=== PATIENT | male | born 1985 | race Caucasian/White ===

== ENCOUNTER 2017-12-23 22:56 | Inpatient (IN) | payer BC, OTHER ==
--- NOTE | 2017-12-24 00:07 | ED ---
General Adult HPI - General Chief complaint: Fever Stated complaint: Fever-cat bite Time Seen by Provider: 12/23/17 23:52 Source: patient, RN notes reviewed, old records reviewed Mode of arrival: wheelchair Limitations: physical limitation - History of Present Illness Initial comments: This is a 32-year-old male the ER for evaluation. They presents for evaluation regards to left leg swelling and pain. Patient was bitten by CAT 6 days ago, was given antibiotics has been taking antibiotics for the pain swelling and erythema continue to spread. Patient denies any other injury - Related Data Home Medications Medication Instructions Recorded Confirmed Ibuprofen [Motrin] 600 mg PO Q8HR PRN 12/31/15 12/31/15 Miconazole 2% Cream [Monistat-Derm] 1 applic TOPICAL BID 12/31/15 12/31/15 Povidone-Iodine [Betadine] 1 applic TOPICAL BID 12/31/15 12/31/15 Previous Rx's Medication Instructions Recorded Ciprofloxacin HCl [Cipro] 500 mg PO Q12HR #20 tablet 12/31/15 Allergies Allergy/AdvReac Type Severity Reaction Status Date / Time No Known Allergies Allergy Verified 12/23/17 23:13 Review of Systems ROS Statement: Those systems with pertinent positive or pertinent negative responses have been documented in the HPI. ROS Other: All systems not noted in ROS Statement are negative. Past Medical History Past Medical History: No Reported History Additional Past Medical History / Comment(s): varcose veins History of Any Multi-Drug Resistant Organisms: None Reported Past Surgical History: No Surgical Hx Reported Past Psychological History: No Psychological Hx Reported Smoking Status: Never smoker Past Alcohol Use History: None Reported Past Drug Use History: Marijuana General Exam Limitations: physical limitation General appearance: alert, in no apparent distress Head exam: Present: atraumatic, normocephalic, normal inspection Eye exam: Present: normal appearance, PERRL, EOMI. Absent: scleral icterus, conjunctival injection, periorbital swelling ENT exam: Present: normal exam, mucous membranes moist Neck exam: Present: normal inspection. Absent: tenderness, meningismus, lymphadenopathy Respiratory exam: Present: normal lung sounds bilaterally. Absent: respiratory distress, wheezes, rales, rhonchi, stridor Cardiovascular Exam: Present: regular rate, normal rhythm, normal heart sounds. Absent: systolic murmur, diastolic murmur, rubs, gallop, clicks GI/Abdominal exam: Present: soft, normal bowel sounds. Absent: distended, tenderness, guarding, rebound, rigid Extremities exam: Present: normal inspection, full ROM, normal capillary refill. Absent: tenderness, pedal edema, joint swelling, calf tenderness, other (Left lower extremity swelling and edema and biting) Back exam: Present: normal inspection Neurological exam: Present: alert, oriented X3, CN II-XII intact Psychiatric exam: Present: normal affect, normal mood Skin exam: Present: warm, dry, intact, normal color. Absent: rash Course Vital Signs 12/23/17 23:09 Temperature 98.3 F Pulse Rate 110 H Respiratory 18 Rate Blood Pressure 148/88 O2 Sat by Pulse 97 Oximetry Medical Decision Making - Medical Decision Making 32 male positive fever positive. Patient be admitted for IV antibiotics secondary to being on Augmentin for 2 days with failure of outpatient treatment. Increasing numbness increasing edema - Radiology Data Radiology results: report reviewed (X-ray tib-fib left leg negative), image reviewed Disposition Clinical Impression: Cat scratch, Fever, Failure of outpatient treatment, Cat bite of left lower leg Disposition: ADMITTED IP TO THIS HOSP Condition: Fair Is patient prescribed a controlled substance at d/c from ED?: No Referrals: Fredy Saldana MD [Primary Care Provider] - 1-2 days
[2017-12-24] MEDS ORDERED: PIPERACILLIN-TAZOBACTAM 3.375 GM in DEXTROSE/WATER 1 50ML.BAG IVPB STA (00:14)
[2017-12-24] MEDS ORDERED: SODIUM CHLORIDE 0.9% 1,000 ML IV STA (00:14)
[2017-12-24] MEDS ORDERED: SODIUM CHLORIDE 0.9% 1,000 ML IV ONE (00:14)
[2017-12-24] MEDS ORDERED: SODIUM CHLORIDE 0.9% 500 ML IV STA (00:14)
[2017-12-24] MEDS ORDERED: ACETAMINOPHEN IV (For NPO) 1,000 MG in EMPTY BAG 1 BAG IVPB STA (00:16)
[2017-12-24 01:15] LABS: Basophils # (A) 0.1 k/uL (0-0.2); Basophils % (A) 0 %; Eosinophils # (A) 0.3 k/uL (0-0.7); Eosinophils % (A) 2 %; HCT 42.5 % (39.0-53.0); HGB 14.7 gm/dL (13.0-17.5); Lymphocytes % (A) 17 %; MCH 30.6 pg (25.0-35.0); MCHC 34.6 g/dL (31.0-37.0); MCV 88.4 fL (80.0-100.0); Mean Platelet Volume 7.4; Monocytes % (A) 5 %; Neutrophils # (A) 13.4 k/uL (1.3-7.7); Neutrophils % (A) 74 %; Platelet Count 214 k/uL (150-450); RBC 4.81 m/uL (4.30-5.90); RDW 12.7 % (11.5-15.5); WBC 18.1 k/uL (3.8-10.6)
[2017-12-24 01:25] LABS: ALT 38 U/L (21-72); AST 26 U/L (17-59); Albumin 4.6 g/dL (3.5-5.0); Alkaline Phosphatase 100 U/L (38-126); Anion Gap 13 mmol/L; Blood Urea Nitrogen 17 mg/dL (9-20); Calcium 9.7 mg/dL (8.4-10.2); Carbon Dioxide 24 mmol/L (22-30); Chloride 101 mmol/L (98-107); Glucose 90 mg/dL (74-99); Sodium 138 mmol/L (137-145); Total Bilirubin 0.9 mg/dL (0.2-1.3); Total Protein 7.4 g/dL (6.3-8.2)
--- NOTE | 2017-12-24 01:28 | XR ---
EXAMINATION TYPE: XR tibia fibula LT DATE OF EXAM: 12/24/2017 COMPARISON: NONE HISTORY: Pain and swelling TECHNIQUE: 4 views FINDINGS: I see no fracture nor dislocation. Ankle joint and knee joint appear intact. There is no si gn of knee joint effusion. IMPRESSION: Soft tissue swelling over the lateral malleolus and also the lateral aspect of the lower leg. No fracture seen.
[2017-12-24] MEDS: ACETAMINOPHEN TAB 325 MG TAB PO PRN ×2 (11:39→18:16)
--- NOTE | 2017-12-24 14:09 | HP ---
HISTORY AND PHYSICAL CHIEF COMPLAINT: Cat bite of the left lower leg. HISTORY OF PRESENT ILLNESS: This gentleman was bitten Thursday by his cat in the left lower leg. Next day, it was more red and swollen. He went to the emergency room where he was started on Augmentin 875 b.i.d. and steadily grew worse. He came back to the emergency room. He has had chills and he had a temperature of a 100. The lower leg and ankle and foot were cellulitic. He is healthy otherwise. REVIEW OF SYSTEMS: He has no other complaints or problems. Past medical history, family history personal and social histories are unremarkable. He has had no surgery or allergies. He takes no medications. He does not smoke or drink. He is employed. PHYSICAL EXAM: Blood pressure is 118/83 with a pulse of 84, respirations of 16 and temperature of a 100. In general, he appeared to be well developed, well nourished, in no acute distress. Skin color is normal skin is warm, dry. Lymph nodes are not enlarged. Head, ears, eyes, nose, mouth, and throat were normal and neck veins are not distended. Thyroid is not enlarged. Chest is clear. Cardiac exam is normal. Abdomen is soft, nontender. Extremities are normal except for the left lateral lower leg where there are bite isabel about the ankle. There is cellulitis in the area of the distal left lower leg, ankle and down into the foot. He has good range of motion in the ankle and foot. Neurologically he is intact. IMPRESSION: CAT bite and cellulitis of the left lower leg and foot. PLAN: 1. Bed rest. 2. IV fluids. 3. IV antibiotics. 4. Elevation. MMODL / IJN: [id number] /
[2017-12-24] MEDS: PIPERACILLIN-TAZOBACTAM 3.375 GM in DEXTROSE/WATER 1 50ML.BAG IVPB SCH ×2 (14:45→21:38)
[2017-12-24] MEDS ORDERED: ACETAMINOPHEN TAB 500 MG TAB PO PRN (15:32)
[2017-12-25] MEDS: PIPERACILLIN-TAZOBACTAM 3.375 GM in DEXTROSE/WATER 1 50ML.BAG IVPB SCH ×2 (05:29→13:54)
[2017-12-25 06:19] VITALS: RESP 18
[2017-12-25 14:57] VITALS: BP 110/64; PULSE 108; TEMP 99.2
--- NOTE | 2017-12-25 15:32 | DS ---
DISCHARGE SUMMARY I am covering for Dr. Saldana. DATE OF SERVICE: 12/25/2017 FINAL DIAGNOSES: 1. Acute cellulitis of the left leg, status post cat bite. 2. Increased white count. DISCHARGE DISPOSITION: The patient will be discharged in stable condition with guarded prognosis. The patient is extremely keen on going home. HISTORY OF PRESENT ILLNESS: This 32-year-old gentleman being followed by Dr. Saldana in the outpatient setting was admitted with a cat bite and cellulitis of the left leg. The patient was treated with IV antibiotics. Patient improved significantly; however, the patient is keen on going home at this time, so the patient will be discharged in stable condition with guarded prognosis. I would recommend the patient to follow up with his primary physician or come to the ER in case of any recurrence or aggravation of symptoms. The patient and his mother at the bedside understand and agree. Please also see staff notes for further details. On exam, vitals are stable. CARDIOVASCULAR SYSTEM: S1, S2 muffled. ABDOMEN: Soft. LEFT LEG: Erythema present but significantly less compared to the outline cesia marked already. DISCHARGE ADVICE AND MEDICATIONS: 1. Discharge diet is regular. 2. Activity limited until followup. 3. Follow up with Dr. Saldana in 3 to 4 days. 4. Tylenol p.r.n. 5. Augmentin 875 mg p.o. b.i.d. for 1 week. 6. Motrin 400 mg q.6 p.r.n. MMMARIA DOLORESL / KAYKAYN: [id number] /
--- NOTE | 2017-12-28 21:17 | DS ---
DISCHARGE SUMMARY He is 89, bed 2. CHIEF COMPLAINT: Cat bite and cellulitis of the left lower leg. HISTORY OF PRESENT ILLNESS AND PHYSICAL EXAM: Details of this man's history and physical can be found in the initial workup. LABORATORY STUDIES: While he was in a hospital, he had laboratory studies, details which can be found in the laboratory section of the chart. COURSE IN HOSPITAL: After admission he was placed on bedrest, started on intravenous fluids and IV antibiotics. The redness and swelling slowly subsided and he was doing well and felt he could go home on the twenty second. FINAL DIAGNOSIS: 1. Cat bite with cellulitis of the left lateral lower leg, ankle, foot. OPERATIONS: None. CONSULTATIONS: Infectious Disease. He is improved. MMODL / IJN: [id number] /
== END 2017-12-25 15:30 | disposition home or self-care (01) | DRG 603 ==
LOC: EC 22:56 → 4MS4W 12-24 00:06
PROVIDERS: ADMIT Family Medicine; ATTEND Family Medicine
DX: L03.116 Cellulitis of left lower limb (principal); A28.1 Cat-scratch disease; W55.01XA Bitten by cat, initial encounter
CPT/HCPCS: 80053; 83605; 85025; 87040; 96365; 96367; 99285

== ENCOUNTER → 2020-01-11 | Outpatient (CLI) | payer BC ==
--- NOTE | 2020-01-11 17:09 | CT ---
EXAMINATION TYPE: CT abdomen pelvis wo con DATE OF EXAM: 01/11/2020 COMPARISON: None INDICATION: Left sided flank pain, history of stones DLP: 1116 mGycm, Automated exposure control for dose reduction was used. CONTRAST: 0 mL of Isovue 300. Study performed without Oral Contrast TECHNIQUE: Axial images were obtained from above the diaphragm to the pubic rami in the axial plane a t 5 mm thick sections. Reconstructed images are reviewed on the computer in the coronal plane. FINDINGS: Limited CT sections are obtained the lung bases. The lung bases are clear. CT ABDOMEN: Liver: Normal Spleen: Normal Pancreas: Normal Adrenal glands: The adrenal glands are normal. Gallbladder: Normal Kidneys: No masses are evident. No hydronephrosis is present. No cysts are present. No suspicious renal or ureteral stones are evident. No hydroureter is evident. In the coronal plane a 0.6 cm distal left ureteral stone without obstruction is evident. Series 4 idania ge 65. Correlate with the clinical symptoms. This is present on the axial plane series 2 image 141 Aorta: Normal Inferior vena cava: Normal. CT PELVIS: Loops of bowel within the abdomen and pelvis are normal. Mild diverticulosis without acute diverticul itis is present sigmoid. There are loops of bowel which are incompletely distended or lack oral co ntrast limiting their evaluation. Appendix: Normal as visualized. Urinary bladder: Normal. Genitourinary structures: Prostate is normal. Osseous structures: No suspicious lytic or sclerotic lesions. IMPRESSIONS: 1. 0.6 cm distal left ureteral stone without hydronephrosis or hydroureter. Early with the clinical symptoms.
== END | disposition home or self-care (01) ==
LOC: RADCTMAIN 09:03
PROVIDERS: ATTEND Family Medicine
DX: N20.1 Calculus of ureter (principal)
CPT/HCPCS: 74176